=== PATIENT | female | born 1950 | race Caucasian/White ===

== ENCOUNTER 2021-06-11 11:55 | Outpatient (CLI) | payer BC, SELFPAY ==
--- NOTE | ~2021-06-11 | MMUS_ITS ---
EXAMINATION: MM diagnostic barbara BI w anderson, US breast RT limited HISTORY: Palpable lump in the axillary region of the right breast TECHNIQUE: Craniocaudal, mediolateral, and mediolateral oblique 3-D tomosynthesis images of the buffy ts were performed and synthetic 2-D images were generated. CAD analysis was submitted and interpreted . High resolution limited right breast ultrasound was performed. COMPARISON: 04/20/2019, 04/01/2018 BREAST PARENCHYMAL COMPOSITION: The breasts are heterogeneously dense, which may obscure small masses . FINDINGS: MAMMOGRAPHIC FINDINGS: No mammographic correlate is identified for the reported palpable abnormality of concern in the axill guerrero region of the right breast. There is no evidence of suspicious mass, calcification, or architectu ral distortion in either breast to suggest malignancy. There has been no suspicious interval change. There is stable focal asymmetry in the anterior third of the inner left breast and stable asymmetry in the upper outer quadrant of the left breast. ULTRASOUND: There is no evidence of focal abnormal solid or cystic mass in the vicinity of the reported palpable abnormality of concern. IMPRESSION: 1. No specific mammographic or sonographic correlate is identified for the reported palpable abnormal ity of concern. Further evaluation at this time should be based on clinical assessment. Continued fol low-up physical examination is recommended. 2. Recommend routine screening mammography in one year. BI-RADS Category 2: Benign finding(s). Reviewed, dictated and finalized at location A. IMPRESSION: 1. No specific mammographic or sonographic correlate is identified for the repo rted palpable abnormality of concern. Further evaluation at this time should be based on clinical assessment. Continued follow-up physical examination is geronimo mmended. 2. Recommend routine screening mammography in one year. BI-RADS Category 2: Benign finding(s).
== END 2021-06-11 11:56 | disposition home or self-care (01) ==
LOC: ANHIMG 11:59
PROVIDERS: PCP Physician Assistant; Visit Provider Physician Assistant
DX: N64.4 Mastodynia (principal); M79.629 Pain in unspecified upper arm
CPT/HCPCS: 76642; 77062; 77066; G0279

== ENCOUNTER → 2022-04-22 08:00 | Outpatient (CLI) | payer BC, MEDICARE, SELFPAY ==
--- NOTE | ~2022-04-22 | US_ITS ---
EXAMINATION: US abdomen limited DATE: 04/22/2022 08:41 INDICATION: Right upper quadrant abdominal pain TECHNIQUE: Multiple grayscale and Doppler ultrasound images of the abdomen were obtained. COMPARISON: None FINDINGS: Abdominal aorta is normal in caliber measuring up to 2.3 cm in maximal diameter. The proximal to mid inferior vena cava is normal. The pancreatic head and body are normal in appearance. The pancreatic tail is not visualized. Liver has normal contour, with a smooth surface. There is mild increased pare nchymal echogenicity and coarsened echotexture consistent with diffuse hepatic steatosis with subtle focal fatty sparing along the gallbladder fossa. No liver lesion identified. No intrahepatic biliary duct dilation suspected. Portal venous flow was seen in the hepatopetal, normal direction and has no rmal Doppler waveform. The gallbladder is normal in appearance. There is no cholelithiasis. The comm on bile duct measures 3-4 mm, which is normal. Sonographic Isaacs sign was reported as negative by [facility] riffler tender. Right kidney demonstrates normal contour and echogenicity with no hydronephrosis. Diff use mild likely age-related right renal cortical atrophy. IMPRESSION: 1. Mild diffuse hepatic steatosis. 2. Likely age-related mild diffuse cortical atrophy of the visualized right kidney. Reviewed, dictated and finalized at location B. IMPRESSION: 1. Mild diffuse hepatic steatosis. 2. Likely age-related mild diffuse cortical atrophy of the visualized right kid kelby.
== END ==
PROVIDERS: PCP Surgery; Visit Provider Surgery
DX: R10.11 Right upper quadrant pain (principal); K76.0 Fatty (change of) liver, not elsewhere classified
CPT/HCPCS: 76705

== ENCOUNTER → 2022-12-29 07:23 | Outpatient (CLI) | payer MEDICARE, SELFPAY ==
--- NOTE | ~2022-12-29 | US_ITS ---
EXAMINATION: US abdomen complete DATE: 12/29/2022 08:19 INDICATION: Unspecified abdominal pain TECHNIQUE: Multiple grayscale and Doppler ultrasound images of the abdomen were obtained. COMPARISON: 04/22/2022 FINDINGS: The head and body of the pancreas are normal. The pancreatic tail is obscured by bowel gas. The liver is normal with normal echogenicity and echotexture. No surface nodularity. Normal hepatope molly flow in the main portal vein. The gallbladder is normal with no abnormal wall thickening, pericho lecystic fluid or stones. The normal common bile duct measures 5 mm. There was no sonographic Isaacs sign. The visualized portions of the aorta and inferior vena cava are normal. The spleen is normal in appearance and measures 7.7 cm. The right kidney measures 10.4 x 4.0 x 5.2 cm . The left kidney measures 10.3 x 4.8 x 5.2 cm. The kidneys demonstrate normal parenchymal echogenici ty. There is no hydronephrosis. IMPRESSION: 1. No sonographic correlate for the patient's symptoms. Reviewed, dictated and finalized at location L. PAPER COLUMNIST
== END ==
PROVIDERS: PCP Family Medicine; Visit Provider Physician Assistant
DX: R10.9 Unspecified abdominal pain (principal)
CPT/HCPCS: 76700

== ENCOUNTER → 2023-02-25 09:46 | Outpatient (CLI) | payer MEDICARE, SELFPAY ==
--- NOTE | ~2023-02-25 | MM_ITS ---
EXAMINATION: MM screening barbara BI w anderson HISTORY: Screening TECHNIQUE: Craniocaudal and mediolateral oblique 3-D tomosynthesis images were obtained and synthetic 2-D images were generated. CAD analysis was submitted and interpreted. COMPARISON: Comparison to multiple prior studies sequentially, with oldest reviewed study dated 02/2018. BREAST PARENCHYMAL COMPOSITION: The breasts are heterogeneously dense, which may obscure small masses . FINDINGS: There is no evidence of suspicious mass, calcification, or architectural distortion to sugg est malignancy in either breast. There has been no suspicious interval change. IMPRESSION: 1. No mammographic evidence of malignancy. 2. Recommend routine screening mammography in one year. BI-RADS Category 1: Negative Reviewed, dictated and finalized at location A.
--- NOTE | ~2023-02-25 | DEXA_ITS ---
Bone Density Report Name: FABRIZIO GARRETT Age: 72 Sex: Female Ethnicity: White Date of : 1950 Indication: postmenopausal; screening for osteoporosis; height loss; Referring Provider: JUAN JOSE HAZEL PA-C Study: Bone densitometry was performed. Exam Date: February 25, 2023 Accession number: [id number] Bone Density: Region BMD T-score Z-score Classification AP Spine (L1-L4) 0.757 -2.6 -0.5 Osteoporosis Femoral Neck (Left) 0.708 -1.3 0.5 Osteopenia Total Hip (Left) 0.849 -0.8 0.8 Normal Femoral Neck (Right) 0.723 -1.1 0.7 Osteopenia Total Hip (Right) 0.893 -0.4 1.1 Normal Total Hip Mean 0.871 -0.6 1.0 Normal World Health Organization criteria for BMD impression classify patients as: Normal (T-score at or above -1.0), Osteopenia (T-score between -1.0 and -2.5), or Osteoporosis (T-score at or below -2.5). 10-year Fracture Risk: FRAX not reported because: Some T-score for Spine Total or Hip Total or Femoral Neck at or below -2.5 Clinical Information Provided by Patient: Patient maximum height was 62 Menopause Age: 50 No regular weight bearing exercise Onset of menses at age 14 Number of children 1 Impression: The patient has osteoporosis, based on the Total Spine T-score. Discussion: INCREASED RISK OF FRACTURE. BONE DENSITY IS UNDESIRABLY LOW AT ONE OR MORE SKELETAL SITES, CONSISTENT WITH POSTMENOPAUSAL OSTEOPOROSIS. This patient's lowest T-score meets the World Health Organization's (WHO) criteria for osteoporosis at one or more sites (T-score -2.5 or below). In untreated patients, the risk of osteoporotic fracture increases approximately two-fold for each 1.0 SD decrease in T-score. Low bone density is not the only risk factor for fracture; also consider factors such as patient's age, frailty or poor health, risk of falling, risk of injury, previous osteoporotic fracture, family history of osteoporosis, cigarette smoking, low body weight, etc. Not everyone with low bone mineral density has osteoporosis; osteomalacia and other metabolic bone disorders should also be considered. Patients who have osteoporosis should be evaluated for specific diseases and conditions (secondary causes) that may cause or contribute to bone loss. The [place] Association of Clinical Endocrinologists (AACE) and National Osteoporosis Foundation (NOF) recommend pharmacologic intervention for all postmenopausal women whose T-score is in this range. The patient should follow a healthful lifestyle (good nutrition with adequate calcium and vitamin D, and appropriate weight-bearing exercise). Follow-Up: Consider a repeat BMD and Vertebral Fracture Assessment (VFA) exam in 2 years or sooner if medically necessary, to reassess this patient's status. Reported by: JOE on 02/25/2023 11:41:00 AM.
== END ==
PROVIDERS: PCP Family Medicine; Visit Provider Physician Assistant
DX: Z12.31 Encounter for screening mammogram for malignant neoplasm of breast (principal); Z78.0 Asymptomatic menopausal state; M85.89 Other specified disorders of bone density and structure, multiple sites; M81.0 Age-related osteoporosis without current pathological fracture
CPT/HCPCS: 77063; 77067; 77080

== ENCOUNTER → 2023-09-06 14:59 | Outpatient (CLI) | payer MEDICARE, SELFPAY ==
--- NOTE | ~2023-09-06 | XR_ITS ---
EXAMINATION: XR abdomen obstructive series DATE: 09/06/2023 15:19 INDICATION: Constipation TECHNIQUE: Supine and upright views of the abdomen. FINDINGS: No prior studies for comparison. The visualized lung parenchyma is normal.. There is a nonobstructive bowel gas pattern. Gas and stool are seen throughout the colon to the level of the rectum. There is no free air. IMPRESSION: 1. No acute abdominal abnormality. Reviewed, dictated and finalized at location B.
== END ==
PROVIDERS: PCP Family Medicine; Visit Provider Physician Assistant
DX: K59.00 Constipation, unspecified (principal)
CPT/HCPCS: 74019

== ENCOUNTER 2024-04-27 15:00 | Outpatient (CLI) | payer MEDICARE, SELFPAY ==
[2024-04-27 18:04] LABS: Alanine Aminotransferase 22 U/L (6-35); Albumin Level 4.3 g/dL (3.5-5.1); Alkaline Phosphatase 60 U/L (38-126); Anion Gap 5 mmol/L (4-12); Aspartate Amino Transferase 29 U/L (14-36); Bilirubin,Total 0.5 mg/dL (0.2-1.3); Blood Urea Nitrogen 21 mg/dL (7-17); Calcium 9.2 mg/dL (8.4-10.2); Carbon Dioxide 28 mmol/L (22-30); Chloride 108 mmol/L (98-107); Estimated Glomerular Filt Rate > 60; Glucose 85 mg/dL (65-110); Potassium 3.9 mmol/L (3.4-5.0); Sodium 141 mmol/L (137-145); Uric Acid 5.6 mg/dL (2.5-7.5)
== END 2024-04-27 15:01 | disposition home or self-care (01) ==
LOC: ANHLAB 15:02
PROVIDERS: PCP Family Medicine; Visit Provider Podiatrist Foot & Ankle Surgery
DX: M10.072 Idiopathic gout, left ankle and foot (principal)
CPT/HCPCS: 36415; 80053; 84550

== ENCOUNTER 2025-02-13 07:33 | Outpatient (CLI) | payer MEDICARE, SELFPAY ==
--- NOTE | ~2025-02-13 | US_ITS ---
EXAMINATION: US soft tissue head and neck DATE: 02/13/2025 08:19 INDICATION: Localized swelling TECHNIQUE: Multiple ultrasound images of the thyroid and soft tissues of the neck were obtained. COMPARISON: None. FINDINGS: The right thyroid lobe measures 3.7 x 1.2 x 1.3 cm. The left thyroid lobe measures 3.3 x 1.1 x 1.4 cm. The isthmus measures 0.4cm in anterior to posterior dimension. There is normal echotexture and echogenicity throughout the thyroid gland. No discrete nodules identified. Normal vascular flow is present. The left submandibular gland is also evaluated, with heterogeneous echogenicity. Multiple nonpathologically enlarged or morphologically suspicious lymph nodes within the left cervica l chain for which no further follow-up is needed. IMPRESSION: Unremarkable sonographic evaluation of the thyroid gland. Multiple nonpathologically enlarged or morphologically suspicious lymph nodes within the left cervica l chain for which no further follow-up is needed. Reviewed, dictated and finalized at location A. IMPRESSION: Unremarkable sonographic evaluation of the thyroid gland. Multiple nonpathologically enlarged or morphologically suspicious lymph nodes w ithin the left cervical chain for which no further follow-up is needed.
== END 2025-02-13 07:34 | disposition home or self-care (01) ==
LOC: MICIMG 07:34
PROVIDERS: PCP Family Medicine; Visit Provider Student in an Organized Health Care Education/Training Program
DX: R22.1 Localized swelling, mass and lump, neck (principal)
CPT/HCPCS: 76536

== ENCOUNTER 2025-06-28 11:44 | Outpatient (NON) | payer MEDICARE, SELFPAY ==
--- OUTSIDE RECORDS SUMMARY | 2025-06-28 11:47 | XMS_ITS | Clinical Summary ---
Author Organization [facility] Address [address] [place] [address] Care Team Providers Care Senior Integration Architect Name Role Phone Lacie Mason Primary Care Provider [phone] Allergies No known active allergies Medications magnesium oxide (MAG-OX) 400 mg tablet Take 400 mg by mouth daily. Active cetirizine (ZYRTEC) 10 mg tablet Take 10 mg by mouth daily. Active benzonatate (TESSALON) 200 mg capsule Take 1 Capsule (200 mg) by mouth 3 times daily as needed for cough 21 Capsule 08/22/2024 Active amoxicillin-cla vulanate (AUGMENTIN) 875-125 mg tablet Take 1 Tablet by mouth 2 times daily for 10 days. 20 Tablet 05/31/2025 10:31 AM CDT 05/28/2025 06/10/20 25 Active Problems No known active problems Encounters Date Type Department Care Team Description 06/13/2025 External Device Data STL ABSTRACTION Provider, Abstract 06/13/2025 External Device Data STL ABSTRACTION Provider, Abstract 06/13/2025 External Device Data STL ABSTRACTION Provider, Abstract 06/12/2025 External Device Data STL ABSTRACTION Provider, Abstract 05/22/2025 External Device Data STL ABSTRACTION Provider, Abstract 05/16/2025 External Device Data STL ABSTRACTION Provider, Abstract 05/15/2025 External Device Data STL ABSTRACTION Provider, Abstract 04/18/2025 External Device Data STL ABSTRACTION Provider, Abstract 04/17/2025 External Device Data STL ABSTRACTION Provider, Abstract from Last 3 Months Family History Medical History Relation Name Comments Diabetes Brother Heart Disease Brother Hypertension Brother Relation Name Status Comments Brother Social History Tobacco Use Types Packs/Day Years Used Date Smoking Tobacco: Former Cigarettes Comments:quit 1996 Alcohol Use Standard Drinks/Week Comments Yes 0 (1 standard drink = 0.6 oz pur e alcohol) very rare Comments No Sex and Gender Information Value Date Recorded Sex Assigned at Not on file Legal Sex Female 3:27 PM CDT Gender Identity Not on file Sexual Orientation Not on file Last Filed Vital Signs Vital Sign Reading Time Taken Comments Blood Pressure 120/64 04/07/2016 12:01 PM CDT Pulse 77 04/07/2016 12:01 PM CDT Temperature 36.5 C (97.7 F) 04/07/2016 11:46 AM CDT Respiratory Rate 18 04/07/2016 12:0 1 PM CDT Oxygen Saturation 98% 04/07/2016 12: 01 PM CDT Inhaled Oxygen Concentration - - Weight 72.5 kg (159 lb 12.8 oz) 04/07/2016 9:55 AM CDT Height 157.5 cm (5' 2) 04/07/2016 9:55 AM CDT Body Mass Index 29.23 04/07/2016 9:55 AM CDT Plan of Treatment Health Maintenance Due Date Last Done Comments DTAP/TDAP/TD VACCINES (1 - Tdap) 1971 BREAST CANCER SCREENING 1992 FIT-DNA Q 3 years 1997 FIT/FOBT Q 1 year 1997 Flex Sig/CT Colonography Q 5 years 1997 PNEUMOCOCCAL VACCINE 50+ YEA RS (1 of 1 - PCV) 2002 ZOSTER VACCINE (1 of 2) 2002 OSTEOPOROSIS SCREENING 2017 INFLUENZA VACCINE (#1) 2025 COLORECTAL SCREENING 04/07/2026 04/07/2016, 04/07/2016, 03/04/2009 Colorectal Cancer Screening 04/07/2026 RSV VACCINE (60+ or ) (1 - 1-dose 75+ series) 2027 Procedures Procedure Name Priority Date/Time Associated Diagnosis Comments ENDOSCOPY, COLON, DIAGNOSTIC Routine 03/04/2009 from Last 3 Months or Most Recently Relevant to Health Maintenance Results * ENDOSCOPY, COLON, DIAGNOSTIC (03/04/2009) us Abstract Provider GI PROCEDURE ORDERABLES Edited Result - Final [facility] from Last 3 Months or Most Recently Relevant to Health Maintenance Insurance BCBS BLUE ACCESS/TRUE BLUE PPO RX [employer] RX Member Subscriber Plan / Payer (Ef fective 2024-Present) Name:Allyn Garrett Relation to Subscriber:Self Name:Allyn Garrett Payer ID:Not on file Group ID:[id number] Type:RX Medicare Part D Address: [place] [employer] [employer]) [facility] [employer] Commercial Advance Directives For more information, please contact: [phone] * Full Code (Latest Code Status on File) Date Activated Date Inactivated Comments 04/07/2016 10:32 AM 04/07/2016 2:13 PM * Full Code Date Activated Date Inactivated Comments 04/07/2016 9:46 AM 04/07/2016 10:32 AM Care Teams Senior Integration Architect Relationship Specialty Start Date End Date Lacie Mason PA PCP - General Physician Data Manager 03/20/16
--- OUTSIDE RECORDS SUMMARY | 2025-06-28 11:47 | XMS_ITS | Encounter Summary ---
Author Organization [employer] Address [address] [place] [address] Care Team Providers Care Real Estate Rental Agent Name Role Phone Lacie Mason Primary Care Provider [phone] Encounter Details Date Type Department Care Team (Latest Contact Info) Description 06/23/2004 Outpatient Historical [facility] NUCLEAR MEDICINE WASH James Membreno MD [address] [place] [id number] ESOPHAGEAL REFLUX (Primary Dx) Social History Tobacco Use Types Packs/Day Years Used Date Smoking Tobacco: Never Assessed Comments Unknown Sex and Gender Information Value Date Recorded Sex Assigned at Not on file Legal Sex Female 3:27 PM CDT Gender Identity Not on file Sexual Orientation Not on file documented as of this encounter Plan of Treatment Not on file documented as of this encounter Visit Diagnoses Diagnosis Esophageal reflux- Primary documented in this encounter Care Teams Real Estate Rental Agent Relationship Specialty Start Date End Date Lacie Mason PA PCP - General Physician Manufacturing Job Titles 03/20/16 documented as of this encounter
--- OUTSIDE RECORDS SUMMARY | 2025-06-28 11:47 | XMS_ITS | Encounter Summary ---
Author Organization [employer] Address [address] [place] [address] Care Team Providers Care Party Plan Sales Consultant Name Role Phone Lacie Mason Primary Care Provider [phone] Encounter Details Date Type Department Care Team (Late st Contact Info) Description 07/15/2004 Emergency [facility] EMERGENCY ROOM WASH Cr Price MD [address] [place] [id number] GASTRITIS/DUODEN NOS W/O HEMORRH (Primary Dx) Social History Tobacco Use Types [...] as of this encounter Visit Diagnoses Diagnosis Unspecified gastritis and gastroduodenitis without mention of hemorrhage- Primary documented in this encounter Care Teams Party Plan Sales Consultant Relationship Specialty Start Date End Date Lacie Mason PA PCP - General Physician Draw Machine Operator 03/20/16 documented as of this encounter
--- OUTSIDE RECORDS SUMMARY | 2025-06-28 11:47 | XMS_ITS | Clinical Summary ---
Author Organization [facility] Address [address] [place] [address] Care Team Providers Care Communication Center Coordinator Name Role Phone Kaylie Villeda MD Primary Care Provider [phone] Source Comments [facility],non-owned Affiliates and Associated Physician Practices is amultiple site organization consisting of ambulatory clinics and hospital sitesin [place], [place], [place] and [place]. This disclosure is being madepursuant to the Care Everywhere program and may not contain all information available regarding this patient. Last updated 18.[facility] Allergies No known active allergies Medications * Be aware that medications may not be up to date on this document. Alwaysverify current medications with the patient. magnesium oxide (MAG-OX) 400 MG tablet Take 400 mg by mouth once daily Active aspirin EC (ECOTRIN) 81 MG tabletIndicatio ns:Coronary artery disease involving [place] coronary artery of [place] heart without angina pectoris Take 1 Tab by mouth once daily 0 6 Active Additional Information Patient not taking.Reason: Other (ringing in ear got too bad so she stopped), Reported on 03/28/2025 cetirizine (ZyrTEC) 5 MG tablet Take 1 (one) tablet by mouth once daily Active Active Problems Patient Care Coordination No te Formatting of this note migh t be different from the original. Licensed Tax Consultant - Dr. Massimo Bellamy Problem Noted Date Diagnosed Date Prediabetes 07/05/2017 Overview (07/05/2017): 06/14 A1c 6.1 06/13 A1c 6.1 Elevated blood pressure read ing without diagnosis of hypertension 06/30/2016 Nonrheumatic aortic valve insufficiency 01/13/20 16 Overview (12/20/2020): 01/14 echo: EF 60-65%, mild AI/MRTR, RVSP 18 12/19 echo: EF 60%, normal chamber sizes, mild-moderate AI, 3 cusp AV VT (ventricular tachycardia), nonsustained 12/27 Overview (11/16/2019): 07/10 stress echo: V-triplets... -> metoprolol 12.5 mg daily 01/14 EKG: SR at 61, T-wave flattening in V3, QTc 400 01/14 stress EKG: V-triplets... 02/11 Holter: SR at 80, range 46-129, occasional PVCs (3.9%), 2 V couplets, rare PACs, symptoms correlated PVCs 11/16 Holter 48 hours: SR at 79, range 49-128, frequent PVCs (9.9%) including bigeminy/trigeminy, rare PACs, 5 beat SVT at 120 CAD (coronary artery disease) 12/27/2015 Overview (12/30/2015): 07/10 stress echo 5:23--98% maximal heart rate, no echo ischemia, normal LVEF, ventricular triplets 07/10 cath: EF 60%, EDP 16, 20% LAD, mild plaque 01/14 stress EKG 9:59--103% maximal heart rate, frequent PVCs, occasional ventricular triplets, no ischemia Pure hypercholesterolemia 12/27/2015 Overview (11/19/2020): 11/17 Cholesterol 250 HDL 63 LDL 165 triglyceride 126, normal LFTs/glucose 01/17 Cholesterol 256 HDL 69 LDL 171 triglyceride 81, normal CMP 06/14 Cholesterol 278 HDL 68 LDL 175 triglyceride 177, normal CMP 06/13 Cholesterol 256 HDL 65 LDL 169 triglyceride 112, AST 42 ALT 19 glucose 93 02/10 Cholesterol 265 HDL 70 LDL 177 triglyceride 88, normal CMP/TSH 01/07 Cholesterol 198 HDL 55 LDL 128 triglyceride 73 Encounters Date Type Department Care Team Description 03/28/2025 10:15 AM CDT Office Visit [facility] - Otolaryngology [address] [place] [address] Yovanny Hernandez MD Globus sensation (Primary Dx); Bilateral tinnitus 03/28/2025 Travel from Last 3 Months Immunizations Immunization Administration Dates Next Due TDAP (7yrs+) 06/11/2019 Family History Medical History Relation Name Comments CAD (Coronary Artery Disease) Brother 1 Rheumatic Fever Maternal Grandmother [place] Mother [place] Other Uncle X3 Relation Name Status Comments Brother 1 Alive CABG in late 50 s; arrhythmia Brother 2 Ronni Alive , mild thorac ic aortic ectasia, HTN Brother 3 Alive SVT Father (Age 47) suicide; n o known heart dz Maternal Grandmother Mother (Age 62) first [place] a t 50 Other Social History Tobacco Use Types Packs/Day Years Used Date Smoking Tobacco: Former Cigarettes 0.5 10 0 12/30/1986 - 12/30/1996 Passive Smoke Exposure: Never Smokeless Tobacco: Never Alcohol Use Standard Drinks/Week Comments Not Currently 0 (1 standard drink = 0.6 oz pur e alcohol) 4x a year Comments No Sex and Gender Information Value Date Recorded Sex Assigned at Not on file Legal Sex Female 5:57 AM HYDRO OPERATOR Gender Identity Not on file Sexual Orientation Not on file Occupation Industry Job Start Date Job End Date retired Not on file Not on file Not on file Last Filed Vital Signs Vital Sign Reading Time Taken Comments Blood Pressure 132/84 03/28/2025 10:11 AM CDT Pulse 82 03/28/2025 10:11 AM CDT Temperature - - Respiratory Rate 14 03/03/2019 9:53 AM CDT Oxygen Saturation 98% 03/28/2025 10: 11 AM CDT Inhaled Oxygen Concentration - - Weight 75.7 kg (166 lb 12.8 oz) 025 10:11 AM CDT Height 157.5 cm (5' 2) 12/20/2020 11:2 9 AM HYDRO OPERATOR Body Mass Index 30.51 12/20/2020 11:29 AM HYDRO OPERATOR Plan of Treatment Health Maintenance Due Date Last Done Comments BONE DENSITY TESTING 1950 COLOGUARD (AGES 45-75) - COL ON CA SCREENING 1950 CT COLONOGRAPHY - COLON CA SCREENING 1950 FIT - COLON CA SCREENING 1950 FLEX SIG - COLON CA SCREENING 1950 HEPATITIS C SCREENING 08/23/1970 PNEUMOCOCCAL VACCINE 50+ (1 of 1 - PCV) 2002 ZOSTER VACCINE (1 of 2) 2002 COLON MONITORING 03/04/2019 03/04/2009 COLONOSCOPY - COLON CA SCREENING 03/04/2019 03/04/2009 Colorectal Cancer Screening 03/04/2019 MAMMOGRAM 04/20/2021 04/20/2019, 04/01/2018 COVID-19 VACCINE ( - 2023-2 5 season) 2024 DEPRESSION SCREENING 11/29/2024 MEDICARE AWV CALENDAR YEAR 2024 INFLUENZA VACCINE (#1) 2025 Respiratory Syncytial Virus (RSV) Vaccine Pt: or over 60 yrs (1 - 1-dose 75+ series) 2027 DTAP/TDAP/TD VACCINES (2 - T d or Tdap) 06/11/2029 06/11/2019 HEPATITIS B VACCINE Aged Out No longe r eligible based on patient's age to complete this topic HIB VACCINE Aged Out No longer eligi ble based on patient's age to complete this topic HPV VACCINE Aged Out No longer eligi ble based on patient's age to complete this topic MENINGOCOCCAL (Group B) VACCINE SHARED DECISION-MAKING Aged Out No longer eligible based on patient's age to complete this topic MENINGOCOCCAL GROUPS A/C/Y/W VACCINE Aged Out No longer eligible b ased on patient's age to complete this topic Insurance [employer]ED MEDICARE ADV Care Teams Communication Center Coordinator Relationship Specialty Start Date End Date Kaylie Villeda MD [address] [place] [address] PCP - General Family Medicine 03/28/25
--- OUTSIDE RECORDS SUMMARY | 2025-06-28 11:47 | XMS_ITS | Encounter Summary ---
Author Organization [employer] Address [address] [place] [address] Care Team Providers Care Grease Rack Worker Name Role Phone Lacie Mason Primary Care Provider [phone] Encounter Details Date Type Department Care Team (Late st Contact Info) Description 12/26/2008 Outpatient Historical [facility] Nghia Harper MD [address] [place] [address] Social History Tobacco Use Types Packs/Day Years Used Date Smoking Tobacco: Never Assessed Comments Unknown Sex and Gender Information Value Date Recorded Sex Assigned at Not on file Legal Sex Female 3:27 PM CDT Gender Identity Not on file Sexual Orientation Not on file documented as of this encounter Plan of Treatment Not on file documented as of this encounter Procedures Procedure Name Priority Date/Time Associated Diagnosis Comments TROPONIN Routine 12/26/2008 12:15 PM REFRIGERATION REPAIR SUPERVISOR documented in this encounter Results * TROPONIN (12/26/2008 12:15 PM REFRIGERATION REPAIR SUPERVISOR) TROPONIN T 0.01 <=0.02 ng/mL [facility] TROPONIN T INTERP Negative [facility] Blood specimen (specimen) 12/26/2008 12:15 PM REFRIGERATION REPAIR SUPERVISOR 12/26/2008 5:30 PM REFRIGERATION REPAIR SUPERVISOR us Nghia Harper MD CHEMISTRY ORDERABLES Edited INTERFACE SYSTEM Refer to clinic/hospital department [facility] CLIA# [id number] [address] [place] [address] documented in this encounter Visit Diagnoses Not on filedocumented in this encounter Care Teams Grease Rack Worker Relationship Specialty Start Date End Date Lacie Mason PA PCP - General Physician Rv Detailer 03/20/16 documented as of this encounter
--- OUTSIDE RECORDS SUMMARY | 2025-06-28 11:47 | XMS_ITS | Encounter Summary ---
Author Organization [employer] Address [address] [place] [address] Care Team Providers Care Assistant Women'S Soccer Coach Name Role Phone Lacie Mason Primary Care Provider [phone] Encounter Details Date Type Department Care Team (Late st Contact Info) Description 06/19/2004 Outpatient Historical [facility] James Membreno MD [address] [place] [phone] ESOPHAGEAL REFLUX (Primary Dx) Social History Tobacco [...] Primary documented in this encounter Care Teams Assistant Women'S Soccer Coach Relationship Specialty Start Date End Date Lacie Mason PA PCP - General Physician Online Communications Specialist 03/20/16 documented as of this encounter
--- OUTSIDE RECORDS SUMMARY | 2025-06-28 11:48 | XMS_ITS | Encounter Summary ---
Author Organization [email or web address] Address [address] [place] [address] Care Team Providers Care Director Speech And Hearing Name Role Phone Lacie Mason Primary Care Provider [phone] Encounter Details Date Type Department Care Team (Late st Contact Info) Description 06/30/2004 Emergency [facility] Jerry Hogan MD NO ADDRESS ON FILE SPRAIN OF NECK (Primary Dx) Social History Tobacco Use Types [...] as of this encounter Visit Diagnoses Diagnosis Sprain of neck- Primary documented in this encounter Care Teams Director Speech And Hearing Relationship Specialty Start Date End Date Lacie Mason PA PCP - General Physician Theatre Program Director 03/20/16 documented as of this encounter
--- OUTSIDE RECORDS SUMMARY | 2025-06-28 11:48 | XMS_ITS | Encounter Summary ---
Author Organization [employer] Address [address] [place] [address] Care Team Providers Care Scuba Instructor Name Role Phone Lacie Mason Primary Care Provider [phone] Encounter Details Date Type Department Care Team (Latest Contact Info) Description 03/30/2003 Outpatient Historical [facility] Shilpa Tolentino LUMP OR MASS IN BREAST (Primary Dx) Social History Tobacco Use Types [...] as of this encounter Visit Diagnoses Diagnosis Lump or mass in breast- Primary documented in this encounter Care Teams Scuba Instructor Relationship Specialty Start Date End Date Lacie Mason PA PCP - General Physician Application Internship 03/20/16 documented as of this encounter
--- OUTSIDE RECORDS SUMMARY | 2025-06-28 11:48 | XMS_ITS | Encounter Summary ---
Author Organization [employer] Address [address] [place] [address] Care Team Providers Care Honing Machine Try Out Setter Name Role Phone Lacie Mason Primary Care Provider [phone] Encounter Details Date Type Department Care Team (Late st Contact Info) Description 07/15/2004 Outpatient Historical [facility] Support Services Cardiac [address] [place] [address] James Membreno MD [address] [place] [phone] Social History Tobacco Use Types Packs/Day Years Used Date Smoking Tobacco: Never Assessed Comments Unknown Sex and Gender Information Value Date Recorded Sex Assigned at Not on file Legal Sex Female 3:27 PM CDT Gender Identity Not on file Sexual Orientation Not on file documented as of this encounter Plan of Treatment Not on file documented as of this encounter Visit Diagnoses Not on filedocumented in this encounter Care Teams Honing Machine Try Out Setter Relationship Specialty Start Date End Date Lacie Mason PA PCP - General Physician Director Of Health Care Marketing 03/20/16 documented as of this encounter
--- OUTSIDE RECORDS SUMMARY | 2025-06-28 11:48 | XMS_ITS | Encounter Summary ---
Author Organization [employer] Address [address] [place] [address] Care Team Providers Care Reforestation Worker Name Role Phone Lacie Mason Primary Care Provider [phone] Encounter Details Date Type Department Care Team (Late st Contact Info) Description 02/26/1999 Outpatient Historical [facility] Britney Ferrer MD [address] [facility] [address] [place] [phone] Nonspecific abnormal findings on radiological or other examinations of the breast (Primary Dx) Social History Tobacco Use Types [...] as of this encounter Visit Diagnoses Diagnosis Nonspecific abnormal findings on radiological or other examinations of the breast- Primary documented in this encounter Care Teams Reforestation Worker Relationship Specialty Start Date End Date Lacie Mason PA PCP - General Physician Sifter Operator 03/20/16 documented as of this encounter
--- OUTSIDE RECORDS SUMMARY | 2025-06-28 11:48 | XMS_ITS | Encounter Summary ---
Author Organization [employer] Address [address] [place] [address] Care Team Providers Care Rigger Supervisor Name Role Phone Lacie Mason Primary Care Provider Encounter Details Date Type Department Care Team (Late st Contact Info) Description 08/24/2003 Outpatient Historical [facility] Conversion, History CENTRAL ORIGIN VERTIGO (Primary Dx) Social History Tobacco Use Types [...] as of this encounter Visit Diagnoses Diagnosis Vertigo of central origin- Primary documented in this encounter Care Teams Rigger Supervisor Relationship Specialty Start Date End Date Lacie Mason PA PCP - General Physician Heavy Coil Winder 03/20/16 documented as of this encounter
--- OUTSIDE RECORDS SUMMARY | 2025-06-28 11:48 | XMS_ITS | Encounter Summary ---
Author Organization [employer] Address [address] [place] [address] Care Team Providers Care Jig Boring Machine Set Up Operator Name Role Phone Lacie Mason Primary Care Provider [phone] Encounter Details Date Type Department Care Team (Latest Contact Info) Description 01/11/2002 Outpatient Historical [facility] Randa Shilpa Marcos PURE HYPERCHOLESTEROLEM (Primary Dx) Social History Tobacco Use Types [...] as of this encounter Visit Diagnoses Diagnosis Pure hypercholesterolemia- Primary documented in this encounter Care Teams Jig Boring Machine Set Up Operator Relationship Specialty Start Date End Date Lacie Mason PA PCP - General Physician Real Estate Rep 03/20/16 documented as of this encounter
--- OUTSIDE RECORDS SUMMARY | 2025-06-28 11:48 | XMS_ITS | Encounter Summary ---
Author Organization [employer] Address [address] [place] [address] Care Team Providers Care Violin Tutor Name Role Phone Lacie Mason Primary Care Provider Encounter Details Date Type Department Care Team (Latest Contact Info) Description 08/04/2000 Outpatient Historical [facility] RandaShilpa Marcos Unspecified symptom associated with female genital organs (Primary Dx) Social History Tobacco Use Types [...] of this encounter Visit Diagnoses Diagnosis Unspecified symptom associated with female genital organs- Primary documented in this encounter Care Teams Violin Tutor Relationship Specialty Start Date End Date Lacie Mason PA PCP - General Physician Insurance Agency Sales Manager 03/20/16 documented as of this encounter
--- OUTSIDE RECORDS SUMMARY | 2025-06-28 11:48 | XMS_ITS | Encounter Summary ---
Author Organization [employer] Address [address] [place] [address] Care Team Providers Care Riding Silks Custodian Name Role Phone Lacie Mason Primary Care Provider Encounter Details Date Type Department Care Team (Latest Contact Info) Description 03/20/2004 Outpatient Historical [facility] Shilpa Tolentino SCREENING MAMM-MAILG NEOPL-OTHER (Primary Dx) Social History Tobacco Use Types [...] as of this encounter Visit Diagnoses Diagnosis Other screening mammogram- Primary documented in this encounter Care Teams Riding Silks Custodian Relationship Specialty Start Date End Date Lacie Mason PA PCP - General Physician Track Watchman 03/20/16 documented as of this encounter
--- OUTSIDE RECORDS SUMMARY | 2025-06-28 11:48 | XMS_ITS | Encounter Summary ---
Author Organization [employer] Address [address] [place] [address] Care Team Providers Care Survey Workers Supervisor Name Role Phone Lacie Mason Primary Care Provider [phone] Encounter Details Date Type Department Care Team (Late st Contact Info) Description 03/26/2004 Outpatient Historical [facility] Britney Ferrer MD [address] [facility] [address] [place] [phone] UNSP ABNORMAL MAMMOGRAM (Primary Dx) Social History Tobacco Use Types [...] as of this encounter Visit Diagnoses Diagnosis Abnormal mammogram, unspecified- Primary documented in this encounter Care Teams Survey Workers Supervisor Relationship Specialty Start Date End Date Lacie Mason PA PCP - General Physician Private Eye 03/20/16 documented as of this encounter
--- OUTSIDE RECORDS SUMMARY | 2025-06-28 11:48 | XMS_ITS | Encounter Summary ---
Author Organization [employer] Address [address] [place] [address] Care Team Providers Care Transition Coach Name Role Phone Lacie Mason Primary Care Provider [phone] Encounter Details Date Type Department Care Team (Late st Contact Info) Description 08/24/2003 Outpatient Historical [facility] Jourdan Godadrd MD [address] [facility] [address] DISC DIS NEC/NOS-CERV (Primary Dx) Social History Tobacco Use Types [...] of this encounter Visit Diagnoses Diagnosis Other and unspecified disc disorder of cervical region- Primary documented in this encounter Care Teams Transition Coach Relationship Specialty Start Date End Date Lacie Mason PA PCP - General Physician Rock Splitter 03/20/16 documented as of this encounter
[2025-06-28 12:54] LABS: Color Synovial Fluid Red (Colorless); Lymphocytes Synovial Fluid 93 %; Macrophages Synovial Fluid 1 %; Monocytes Synovial Fluid 5 %; Neutrophils Synovial Fluid 1 % (0-25); Nucleated Cell Synovial Fluid 617 /uL (0-200); RBC Synovial Fluid 36000 /uL (0-0); Source Synovial Fluid Rt Knee Syn Fluid
== END 2025-06-28 11:45 | disposition home or self-care (01) ==
PROVIDERS: PCP Family Medicine; Visit Provider Nurse Practitioner Family
DX: M10.9 Gout, unspecified (principal)
CPT/HCPCS: 89051; 89060